=== PATIENT | female | born 1965 | race Caucasian/White ===

== ENCOUNTER → 2017-06-12 | Outpatient (CLI) | payer OTHER ==
[2017-06-12] MEDS: IOHEXOL 180 MG/ML 10 ML VIAL. INT ART ×2 (13:12)
[2017-06-12] MEDS: LIDOCAINE 1% Multi-Dose 20 ML VIAL. ID ×2 (13:12)
== END | disposition home or self-care (01) ==
LOC: KCIC 11:25
DX: S46.012D Strain of muscle(s) and tendon(s) of the rotator cuff of left shoulder, subsequent encounter (principal); X58.XXXD Exposure to other specified factors, subsequent encounter
CPT/HCPCS: 73040; 73201; Q9965

== ENCOUNTER → 2017-07-10 | Outpatient (CLI) | payer OTHER ==
[2017-07-10 10:26] LABS: ADD MAN DIFF? NO
[2017-07-10 10:38] LABS: BASO % 1 % (0-3); EOS # 0.2 x10^3/uL (0.0-0.7); EOS % 3 % (0-3); HEMATOCRIT 41.2 % (36.0-47.0); HEMOGLOBIN 13.8 g/dL (12.0-15.5); LYMPH # 1.9 x10^3/uL (1.0-4.8); LYMPH % 31 % (24-48); MEAN CORPUSCULAR HEMOGLOBIN 31 pg (25-35); MEAN CORPUSCULAR HGB CONC 34 g/dL (31-37); MEAN CORPUSCULAR VOLUME 91 fL (79-100); MONO # 0.4 x10^3/uL (0.0-1.1); MONO % 6 % (0-9); NEUT # 3.7 x10^3uL (1.8-7.7); NEUT % 59 % (31-73); PLATELET COUNT 249 x10^3/uL (140-400); RED BLOOD COUNT 4.51 x10^6/uL (3.50-5.40); RED CELL DISTRIBUTION WIDTH 14.6 % (11.5-14.5); WHITE BLOOD COUNT 6.2 x10^3/uL (4.0-11.0)
[2017-07-10 10:41] LABS: ANION GAP 9 (6-14); BLOOD UREA NITROGEN 13 mg/dL (7-20); CALCIUM 9.3 mg/dL (8.5-10.1); CARBON DIOXIDE 29 mmol/L (21-32); CHLORIDE 106 mmol/L (98-107); CREATININE 0.6 mg/dL (0.6-1.0); GFR 104.6; GLUCOSE 105 mg/dL (70-99); POTASSIUM 4.2 mmol/L (3.5-5.1); SODIUM 144 mmol/L (136-145)
[2017-07-10 10:47] LABS: INR 0.9 (0.8-1.1); PARTIAL THROMBOPLASTIN TIME 25 SEC (24-38)
[2017-07-10 11:32] LABS: BILIRUBIN,URINE NEGATIVE (NEG); CLARITY,URINE CLEAR; COLOR,URINE YELLOW; GLUCOSE,URINE NEGATIVE (NEG); NITRITE,URINE NEGATIVE (NEG); PROTEIN,URINE NEGATIVE (NEG-TRACE); UROBILINOGEN,URINE 0.2 mg/dL (0.2 mg/dL)
[2017-07-10 11:45] LABS: BACTERIA,URINE FEW /HPF (0-FEW); RBC,URINE 0 /HPF (0-2); SQUAMOUS EPITHELIAL CELL,UR MOD /LPF; WBC,URINE OCC /HPF (0-4)
[2017-07-10 12:04] LABS: SEDIMENTATION RATE 15 (0-25)
[2017-07-10 20:12] LABS: MRSA BY PCR Negative (Negative)
== END | disposition home or self-care (01) ==
LOC: SURGPAT 09:12
DX: Z01.818 Encounter for other preprocedural examination (principal); R79.89 Other specified abnormal findings of blood chemistry; Z95.0 Presence of cardiac pacemaker
CPT/HCPCS: 36415; 71046; 80048; 81001; 82040; 85025; 85610; 85651; 85730; 87641; 93005

== ENCOUNTER 2017-07-25 07:59 | Day surgery (SDC) | payer OTHER ==
[~2017-07-25 07:59] MED LIST: IV RINGERS,LACTATED 1000ML 1,000 ML IV; LIDOCAINE 1% PF 2 ML VIAL. ID; MORPHINE SULFATE 2 MG/ML DISP.SYRIN. IV; MORPHINE SULFATE 4 MG/ML DISP.SYRIN. IV; ONDANSETRON PF 4 MG/2 ML VIAL. IV; PROCHLORPERAZINE 10 MG/2 ML VIAL. IV; TRANEXAMIC ACID 1,000 MG in IV NS 50ML -- 1ST BAG INJ; ceFAZolin 2GM PREMIX 2 GM/50 ML BAG IV; fentaNYL PF VIAL 100 MCG/2 ML VIAL IV
[2017-07-25] MEDS ORDERED: TRANEXAMIC ACID 1,000 MG in IV NS 50ML -- 2ND BAG INJ (08:00)
[2017-07-25] MEDS: CELECOXIB 200 MG CAPSULE. PO (09:17)
[2017-07-25] MEDS: IV RINGERS,LACTATED 1000ML 1,000 ML IV (09:17)
[2017-07-25] MEDS: HYDROcodone/APAP 7.5/325MG 1 TAB TABLET PO (09:18)
[2017-07-25] MEDS ORDERED: ROPIVacaine 0.5% PF 20 ML VIAL. (10:14)
[2017-07-25] MEDS ORDERED: fentaNYL PF VIAL 100 MCG/2 ML VIAL (11:17)
[2017-07-25] MEDS ORDERED: PROPOFOL 20 ML IV (11:17)
[2017-07-25] MEDS ORDERED: ROCURONIUM 50 MG/5 ML VIAL. (11:17)
[2017-07-25] MEDS ORDERED: DEXAMETHASONE SOD PHOS 20 MG/5 ML VIAL. (11:17)
[2017-07-25] MEDS ORDERED: ONDANSETRON PF 4 MG/2 ML VIAL. (11:17)
[2017-07-25] MEDS ORDERED: MIDAZOLAM HCL/PF 2 MG/2 ML VIAL. (11:26)
[2017-07-25] MEDS ORDERED: SEVOFLURANE 61 TO 120 MINUTES. IH (11:41)
[2017-07-25] MEDS: EPINEPHrine VIAL 30 MG/30 ML VIAL (13:34)
[2017-07-25] MEDS ORDERED: DESFLURANE > 120 MINUTES IH (14:23)
[2017-07-25] MEDS ORDERED: GLYCOPYRROLATE 1 MG/5 ML VIAL. (14:25)
[2017-07-25] MEDS: PROCHLORPERAZINE 10 MG/2 ML VIAL. IV (15:58)
[2017-07-25] MEDS ORDERED: oxyCODONE/APAP 7.5/325 1 TAB TABLET PO (16:45)
== END 2017-07-25 17:59 | disposition home or self-care (01) ==
LOC: SURG 07:59
DX: M75.102 Unspecified rotator cuff tear or rupture of left shoulder, not specified as traumatic (principal); M75.122 Complete rotator cuff tear or rupture of left shoulder, not specified as traumatic; S46.212A Strain of muscle, fascia and tendon of other parts of biceps, left arm, initial encounter; X58.XXXA Exposure to other specified factors, initial encounter; Y93.9 Activity, unspecified; Y92.9 Unspecified place or not applicable; Y99.9 Unspecified external cause status; D64.9 Anemia, unspecified; F17.210 Nicotine dependence, cigarettes, uncomplicated; F41.9 Anxiety disorder, unspecified; F32.9 Major depressive disorder, single episode, unspecified; E11.42 Type 2 diabetes mellitus with diabetic polyneuropathy; M19.90 Unspecified osteoarthritis, unspecified site; Z98.51 Tubal ligation status; K21.9 Gastro-esophageal reflux disease without esophagitis; E66.9 Obesity, unspecified; Z68.33 Body mass index [BMI] 33.0-33.9, adult; Z90.49 Acquired absence of other specified parts of digestive tract; Z91.02 Food additives allergy status; Z88.8 Allergy status to other drugs, medicaments and biological substances
CPT/HCPCS: 29827; 36415; 86850; 86900; 86901; C1713; J0171; J0690; J0780; J1100; J2250; J2405; J2704; J2795; J3010; J3490; J7030; J7120

== ENCOUNTER → 2021-08-05 | Outpatient (CLI) | payer OTHER ==
[~2021-08-05] MED LIST changes: +ALBU2.5V8 IH; +ASPI-482 PO; +ASPI325T8 PO; +CHLO25TA10 PO; +CYCL10TA19 PO; +ESCITALOPRAM OX10 MG PO; +FERR325T58 PO; +FLUT1DIS3 IH; +GABA-585 PO; +HYDR-2765 PO; -IV RINGERS,LACTATED 1000ML 1,000 ML IV; +LAMO25TA9 PO; -LIDOCAINE 1% PF 2 ML VIAL. ID; +LITH300C PO; +LOSA-73 PO; +MIRT-8 PO; -MORPHINE SULFATE 2 MG/ML DISP.SYRIN. IV; -MORPHINE SULFATE 4 MG/ML DISP.SYRIN. IV; +MULT-445 PO; +OMEP20TA91 PO; -ONDANSETRON PF 4 MG/2 ML VIAL. IV; +OXYC1TAB19 PO; -PROCHLORPERAZINE 10 MG/2 ML VIAL. IV; +SUCR1TAB PO; +SUCR1TAB35 PO; -TRANEXAMIC ACID 1,000 MG in IV NS 50ML -- 1ST BAG INJ; +TRAZ-118 PO; +TRAZ-123 PO; -ceFAZolin 2GM PREMIX 2 GM/50 ML BAG IV; -fentaNYL PF VIAL 100 MCG/2 ML VIAL IV
[2021-08-05 14:05] VITALS: BP 136/84
[2021-08-05 14:15] VITALS: BP 146/79
[2021-08-05 14:20] VITALS: BP 143/83
--- NOTE | 2021-08-05 14:25 | NUR ---
[employer] fundraising sale representative set patient's pacemaker to a rate of 70 for study. Patient tolerated study well, vital signs in flowsheet. No problems noted and [employer] rep. placed patient back into original pacemaker settings prior to patient departing MRI suite.
--- NOTE | 2021-08-05 15:20 | RAD ---
EXAMINATION: MRI BRAIN WO CLINICAL HISTORY: Chronic migraine w/o aura w/o status, dizziness, tremors. History of [employer] pace maker. TECHNIQUE: Multiplanar multisequential images obtained through the brain without intravenous contrast . COMPARISON: None FINDINGS: Acute Change: No evidence of an acute intracranial process. No evidence of restricted diffusion. Hemorrhage: No evidence of acute intracranial hemorrhage. Mass Lesion/Mass Effect: No evidence of intracranial mass or extra-axial fluid collection. No signifi cant mass effect. Chronic Change: Scattered punctate foci of increased T2/FLAIR signal within the supratentorial white matter, nonspecific but can be seen with migraines or may be related to minimal chronic microvascular ischemia. Blooming in the bilateral basal ganglia on gradient echo sequence favors calcification. Parenchyma: No significant volume loss for age. Parenchymal signal and morphology otherwise within no rmal limits. Ventricles: Normal caliber and morphology. Skull Base: Hypothalamic and pituitary regions grossly unremarkable. Craniocervical junction within n ormal limits. No evidence of suspicious marrow replacement process. Vasculature: Large vessel and dural venous sinus flow voids within normal limits. Other: No significant paranasal sinus disease. Mastoids clear. Orbits and extracranial soft tissues u nremarkable. IMPRESSION: No evidence of acute intracranial abnormality. Few nonspecific T2/FLAIR hyperintensities in the supratentorial white matter as described. Electronically signed by: Robbin Mccormick DO (08/05/2021 3:18 PM) [id number]
== END ==
LOC: MRI 12:22
PROVIDERS: ATTEND Nurse Practitioner Family
DX: G43.709 Chronic migraine without aura, not intractable, without status migrainosus (principal); G31.84 Mild cognitive impairment of uncertain or unknown etiology; R42 Dizziness and giddiness; G47.19 Other hypersomnia; H53.9 Unspecified visual disturbance; G25.0 Essential tremor
CPT/HCPCS: 70551